=== PATIENT | male | born 1940 | race Caucasian/White ===

== ENCOUNTER 2017-01-23 10:59 | Day surgery (SDC) | payer MEDICARE, BC, OTHER ==
[2017-01-19 11:38] VITALS: BP 134/82
[~2017-01-23] VITALS: Ht 172.7 cm; Wt 80.9 kg
[~2017-01-23 10:59] MED LIST: AMLO5TAB2 PO; AMLODIPINE PO; ASPI-496 PO; ATOR40TA78 PO; CEFT2FRO2 IV; GLUC1TAB55 PO; METO-93 PO; MULT-412 PO; OMEP-110 PO; PIRF267C PO; PRED20TA PO; PROPOFOL 10 MG/ML, 50ML ONE; RUTI1TAB PO; SIMV20TA PO
[2017-01-23] MEDS ORDERED: TICAGRELOR 90 MG TABLET ONE (11:52)
[2017-01-23] MEDS ORDERED: FENTANYL PF 100 MCG/2ML ONE (11:52)
[2017-01-23] MEDS ORDERED: VERAPAMIL 2.5 MG/ML, 2ML ONE (11:52)
[2017-01-23] MEDS ORDERED: MIDAZOLAM 1 MG/ML, 5ML ONE (11:52)
[2017-01-23] MEDS ORDERED: NITROGLYCERIN 5 MG/ML, 10ML ONE (11:53)
[2017-01-23] MEDS ORDERED: LIDOCAINE 2%, 20ML ONE (11:53)
[2017-01-23] MEDS ORDERED: BIVALIRUDIN 250 MG ONE (11:53)
[2017-01-23] MEDS ORDERED: HEPARIN 1,000 UNITS/ML, 10ML ONE (11:53)
[2017-01-23] MEDS ORDERED: ASPIRIN 325 MG TABLET EC ONE (12:15)
[2017-01-23] MEDS ORDERED: KETAMINE 10 MG/ML, 20ML ONE (12:24)
[2017-01-23] MEDS ORDERED: ACETAMINOPHEN 325 MG TABLET PO PRN (12:30)
[2017-01-23] MEDS ORDERED: BISACODYL 5 MG EC TABLET PO PRN (12:30)
[2017-01-23] MEDS ORDERED: ASPIRIN 325 MG TABLET EC PO ONE (12:30)
[2017-01-23] MEDS ORDERED: ZOLPIDEM 5MG TABLET PO PRN (12:30)
[2017-01-23] MEDS ORDERED: BISACODYL 10 MG SUPP PR PRN (12:30)
[2017-01-23] MEDS ORDERED: ONDANSETRON 2MG/ML, 2ML IVPush PRN (12:30)
[2017-01-23] MEDS ORDERED: SODIUM CHLORIDE 0.9% 1,000 ML IV SCH (13:28)
[2017-01-23] MEDS ORDERED: SODIUM CHLORIDE 0.9% IV PRN (13:30)
[2017-01-23] MEDS ORDERED: ADENOSINE IV PRN (13:30)
== END 2017-01-23 16:36 ==
LOC: CACL 10:59
PROVIDERS: ATTEND Internal Medicine Cardiovascular Disease
DX: I25.10 Atherosclerotic heart disease of native coronary artery without angina pectoris (principal); J84.10 Pulmonary fibrosis, unspecified; I27.20 Pulmonary hypertension, unspecified; Z79.82 Long term (current) use of aspirin; I10 Essential (primary) hypertension; E78.00 Pure hypercholesterolemia, unspecified
CPT/HCPCS: 93460; 93463; C1760; C1769; C1894; J2250; J2704; J3010; J3490; Q9967; J0583; J1644